=== PATIENT | male | born 1980 | race Caucasian/White ===

== ENCOUNTER 2021-07-28 17:28 | Emergency (ER) | payer OTHER ==
[2021-07-28] MEDS ORDERED: Sodium Chloride 0.9% 10 ML Syringe FLUSH PRN (17:41)
[2021-07-28] MEDS ORDERED: LORazepam 2 MG/ML SDV IVPUSH ONE (18:07)
[2021-07-28] MEDS ORDERED: Sodium Chloride 0.9% 1,000 ML IV SCH (18:15)
[2021-07-28 18:25] LABS: ESTIMATED GFR > 60 (>60)
[2021-07-28] MEDS ORDERED: amLODIPine 5 MG Tab PO ONE (19:37)
[2021-07-28] MEDS ORDERED: Labetalol 20 MG/4 ML Syringe IVPUSH ONE (20:38)
[2021-07-28] MEDS ORDERED: Gabapentin 300 MG Cap PO ONE (21:25)
== END 2021-07-28 21:30 | disposition home or self-care (01) ==
LOC: FB.ED 17:28
DX: K70.9 Alcoholic liver disease, unspecified (principal); F10.10 Alcohol abuse, uncomplicated; R51.9 Headache, unspecified; I10 Essential (primary) hypertension; Y90.5 Blood alcohol level of 100-119 mg/100 ml
CPT/HCPCS: 36415; 70450; 71045; 80053; 80307; 81001; 83735; 84443; 84484; 85025; 93005; 96374; 96375; 99284; A9270; J2060; J3490; J7030; 93010; 99283